=== PATIENT | female | born 1935 | race Caucasian/White ===

== ENCOUNTER → 2024-06-26 | Outpatient (CLI) | payer MEDICARE ==
--- NOTE | 2024-06-27 08:39 | MM ---
Reason for Exam: Screening (asymptomatic). Last screening mammogram was performed 11 month(s) ago. Patient History: Menarche at age 14. First Full-Term at age 22. Left ovary removed at age 36. Right ovary removed at age 36. Hysterectomy at age 36. Postmenopausal. Paternal grandmother had breast cancer at or over age 50. Mother had breast cancer at or over age 50. Prior Study Comparison: 06/17/2020 Bilateral Screening Mammogram, [facility]. 06/19/2022 Bilateral Screening Mammogram, [facility]. 12/17/2022 Bilateral Diagnostic Ultrasound, [facility]. 07/08/2023 Bilateral Screening Mammogram, [facility]. Tissue Density: The breasts are heterogeneously dense, which may obscure small masses. Findings: Analyzed By CAD. Right breast: There is no suspicious group of microcalcifications or new suspicious mass. Left breast: There is no suspicious group of microcalcifications or new suspicious mass. Overall Assessment: Negative, BI-RAD 1 Management: Screening Mammogram of both breasts in [address] [facility] will attempt to contact patient to return for supplemental views and ultrasound if indicated. Patient should continue monthly self-breast exams. A clinical breast exam by your physician is recommended on an annual basis. This exam should not preclude additional follow-up of suspicious palpable abnormalities. Note on Lauren scores and lifetime risk: 1. A Lauren score greater than 3% is considered moderate risk. If this is the case, consider specialist referral to assess eligibility for a risk reducing agent. 2. If overall lifetime risk for the development of breast cancer is 20% or higher, the patient may qualify for future screening with alternating mammogram and breast MRI. [facility], , 06/27/2024 8:35 AM. Electronically signed and approved by: Arthur Matta DO
== END | disposition home or self-care (01) ==
LOC: RADMAMWWP 13:36
PROVIDERS: ATTEND Family Medicine
CPT/HCPCS: 77063; 77067

== ENCOUNTER → 2024-08-08 | Outpatient (CLI) | payer MEDICARE ==
[2024-08-08 14:47] LABS: African American GFR (CKD) 54 (>60 ml/min/1.73 sqM); Blood Urea Nitrogen 22 mg/dL (7-17); Non-African American GFR(CKD) 47 (>60 ml/min/1.73 sqM)
--- NOTE | 2024-08-08 15:33 | CT ---
EXAMINATION TYPE: CT iac w con CT DLP: 142.7 mGycm, Automated exposure control for dose reduction was used. DATE OF EXAM: 08/08/2024 3:15 PM INDICATION: Patient age:Female; 88 years old; Reason for study: H90.A32 Mixed hearing loss; PHH. COMPARISON: None. TECHNIQUE: Multiple thin axial images were obtained through the temporal bones and internal auditory canals. Additional coronal reformatted images were obtained. Patient was given approximately 80 cc of Isovue-300 intravenously. FINDINGS: Right Temporal Bone: External Ear: The external auditory canal is unremarkable, The tympanic membrane is present and unrem arkable. Middle Ear: The ossicles demonstrate a normal appearance. Prussak's space is clear and the scutum i s intact. There is no evidence of osseous erosion and the tegmen tympani is intact. Inner Ear: Cochlea, vestibule and semi circular canals are unremarkable. No evidence of carotid aviva l dehiscence. Two and a half turns of the cochlea are identified. The vestibular aqueduct is not enl arged. Mastoid Air Cells: The mastoid air cells are clear. The tegmen mastoideum is intact. The aditus ad an trum is clear. Internal Auditory Canal: The internal auditory canal is unremarkable. Left Temporal Bone: External Ear: The external auditory canal is unremarkable, The tympanic membrane is present and unrem arkable. Middle Ear: The ossicles demonstrate a normal appearance. Prussak's space is clear and the scutum i s intact. There is no evidence of osseous erosion and the tegmen tympani is intact. Inner Ear: Cochlea, vestibule and semi circular canals are unremarkable. No evidence of carotid aviva l dehiscence. Two and a half turns of the cochlea are identified. The vestibular aqueduct is not enl arged. Mastoid Air Cells: The mastoid air cells are clear. The tegmen mastoideum is intact. The aditus ad an trum is clear. Internal Auditory Canal: The internal auditory canal is unremarkable. Minimal mucosal thickening in the inferior left maxilla sinus. The remaining paranasal sinuses are cl ear. Bilateral aphakia. IMPRESSION: No CT evidence for significant abnormality of the internal auditory canals. No abnormal contrast enha ncement. [facility], , 08/08/2024 3:31 PM
== END | disposition home or self-care (01) ==
LOC: RADCTMAIN 13:57
PROVIDERS: ATTEND Otolaryngology
DX: H90.A32 Mixed conductive and sensorineural hearing loss, unilateral, left ear with restricted hearing on the contralateral side (principal)
CPT/HCPCS: 82565; 84520; 70481; 36415; Q9967

== ENCOUNTER → 2024-11-20 | Outpatient (CLI) | payer MEDICARE ==
--- NOTE | 2024-11-20 16:48 | US ---
EXAMINATION TYPE: US kidneys/renal and bladder DATE OF EXAM: 11/20/2024 COMPARISON: NONE CLINICAL INDICATION: Female, 89 years old with history of N18.32 CHRONIC KIDNEY DISEASE, STAGE 3B; CK D TECHNIQUE: Grayscale imaging of the bilateral kidneys and urinary bladder: FINDINGS: EXAM MEASUREMENTS: Right Kidney: 8.9 x 4.3 x 4.7 cm Left Kidney: 8.5 x 4.6 x 4.0 cm Right Kidney: wnl, no evidence for hydronephrosis, mass or renal calculus. Left Kidney: column of honey present no suspicious masses visualized. Bladder: wnl Bilateral Jets seen: No There is no evidence for hydronephrosis at this point in time. No nephrolithiasis is seen. No francisco s are identified. The urinary bladder is anechoic. exam limited by bowel gas IMPRESSION: No evidence for obstructive uropathy or renal calculus. [facility], , 11/20/2024 4:46 PM
== END | disposition home or self-care (01) ==
LOC: RADUSWWP 14:50
PROVIDERS: ATTEND Internal Medicine
DX: N18.32 Chronic kidney disease, stage 3b (principal)
CPT/HCPCS: 76770

== ENCOUNTER → 2024-12-01 | Outpatient (CLI) | payer MEDICARE ==
--- NOTE | 2024-12-01 11:59 | XR ---
EXAMINATION TYPE: XR lumbar spine 2 or 3V DATE OF EXAM: 12/01/2024 CLINICAL INDICATION: Female, 89 years old with history of M48.07 Lumbosacral spinal stenosis, pain TECHNIQUE: Frontal and lateral images of the lumbar spine are obtained. COMPARISON: None FINDINGS: There are 5 lumbar type vertebral bodies identified. There is extra convex scoliosis cente red at the L4 level. There is multilevel spondylolisthesis or grade 1 anterolisthesis of L2 on L3, L3 on L4, and L4 on L5. Vertebral body heights are maintained. Moderate to severe multilevel disc space narrowing L2-L3 through L5-S1 levels is present. Mild to moderate overlying arterial vascular calcif ication is seen. Cholecystectomy clips are present. IMPRESSION: As above. [facility], , 12/01/2024 11:57 AM
--- NOTE | 2024-12-01 12:01 | XR ---
EXAMINATION TYPE: XR sacrum coccyx DATE OF EXAM: 12/01/2024 11:53 AM COMPARISON: CLINICAL INDICATION: Female, 89 years old with history of M48.07 Lumbosacral spinal stenosis; kimberly KUMAR in TECHNIQUE: XR sacrum coccyx, examined in frontal and lateral projections. FINDINGS: There is no evidence of acute displaced fracture. There is no soft tissue abnormality. No abnormal calcifications are present. Multilevel degenerative changes of the lower spine. The sacral a lar are maintained bilaterally. IMPRESSION: No acute osseous pathology in the sacrum or coccyx. [facility], , 12/01/2024 11:59 AM
== END | disposition home or self-care (01) ==
LOC: RADXRMAIN 11:31
PROVIDERS: ATTEND Internal Medicine
DX: M48.07 Spinal stenosis, lumbosacral region (principal); M51.27 Other intervertebral disc displacement, lumbosacral region; M43.16 Spondylolisthesis, lumbar region
CPT/HCPCS: 72100; 72220